=== PATIENT | male | born 1955 | race Caucasian/White ===

== ENCOUNTER 2018-01-09 14:04 | Inpatient (IN) | payer BC ==
[~2018-01-09] VITALS: Ht 172.7 cm; Wt 87.7 kg
[2018-01-09 14:08] VITALS: Ht 172.7 cm; Wt 87.7 kg
[2018-01-09 14:32] LABS: PLATELET COUNT 317 x10^3mcL (130-400); RED CELL DISTRIBUTION WIDTH 13.7 % (11.5-14.5)
[2018-01-09 14:33] LABS: BASOPHIL % 2.2 % (0-2)
[2018-01-09 15:02] LABS: SODIUM SERUM 134 mmol/L (136-145)
[2018-01-09 15:03] LABS: ALBUMIN 3.7 g/dL (3.4-5.0); ALKALINE PHOSPHATASE 55 U/L (46-116); ALT/SGPT 21 U/L (16-63); AST/SGOT 16 U/L (15-37); BILIRUBIN TOTAL 0.43 mg/dL (0.20-1.00); CALCIUM 8.8 mg/dL (8.5-10.1); CARBON DIOXIDE 26.2 mmol/L (21-32); CHLORIDE SERUM 105 mmol/L (98-107); CREATININE SERUM 1.1 mg/dL (0.7-1.3); GFR1 > 60 mL/min; GLUCOSE SERUM 100 mg/dL (74-106); TOTAL PROTEIN, SERUM 6.9 g/dL (6.4-8.2)
[2018-01-09] MEDS ORDERED: PROPECIA1 MG (15:38)
[2018-01-09 16:29] LABS: MAGNESIUM 2.2 mg/dL (1.8-2.4); PHOSPHOROUS 3.3 mg/dL (2.5-4.9)
[2018-01-09 16:39] LABS: T3 TOTAL 0.98 ng/mL
[2018-01-09 16:42] LABS: FREE T4 1.05 ng/dL (0.76-1.46); FREE THYROXINE INDEX 2.2 ug/dL (1.4-4.5); T4(THYROXINE) 6.7 ug/dL (4.7-13.3)
[2018-01-09 17:27] VITALS: BP 136/77
[2018-01-09 18:35] LABS: CHOLESTEROL/HDL RATIO 3.9
[2018-01-09 20:46] VITALS: BP 112/70
[2018-01-09 23:20] LABS: microscopic required? NO
[2018-01-09 23:37] LABS: UA SPECIFIC GRAVITY 1.025 (1.005-1.035); urine erythrocyte NEGATIVE (NEGATIVE)
[2018-01-10 05:31] VITALS: BP 117/70
[2018-01-10 07:27] LABS: BASOPHIL % 0.8 % (0-2); PLATELET COUNT 297 x10^3mcL (130-400); RED CELL DISTRIBUTION WIDTH 13.9 % (11.5-14.5)
[2018-01-10 07:46] LABS: CALCIUM 8.4 mg/dL (8.5-10.1); CARBON DIOXIDE 26.6 mmol/L (21-32); CHLORIDE SERUM 107 mmol/L (98-107); CREATININE SERUM 0.9 mg/dL (0.7-1.3); GFR1 > 60 mL/min; GLUCOSE SERUM 90 mg/dL (74-106); MAGNESIUM 2.2 mg/dL (1.8-2.4); PHOSPHOROUS 2.9 mg/dL (2.5-4.9); POTASSIUM SERUM 4.1 mmol/L (3.5-5.1); SODIUM SERUM 139 mmol/L (136-145)
[2018-01-10 09:52] VITALS: BP 136/83
[2018-01-10 11:34] VITALS: BP 136/83
== END 2018-01-10 12:05 | disposition home or self-care (01) | DRG 313 ==
LOC: ED 14:04 → DU 15:37
PROVIDERS: Emergency Medicine; Family Medicine
DX: R07.89 Other chest pain (principal); E87.1 Hypo-osmolality and hyponatremia; E78.5 Hyperlipidemia, unspecified; F32.9 Major depressive disorder, single episode, unspecified; F41.0 Panic disorder [episodic paroxysmal anxiety]; Z87.891 Personal history of nicotine dependence; Z72.89 Other problems related to lifestyle
CPT/HCPCS: 83880; 84439; J1885; J7030; Q0092